=== PATIENT | male | born 1995 | race Caucasian/White ===

== ENCOUNTER 2018-05-23 04:28 | Emergency (ER) | payer OTHER ==
--- NOTE | 2018-05-23 04:39 | PDOC ---
History of Present Illness - General Stated Complaint: COUGHING - History of Present Illness Initial Comments: 05/23/18 04:37 Mr. John is a 23 yo male w/ pmh of autism, MR, and seizure disorder who presents for evaluation of The patient denies chest pain, shortness of breath, headache and dizziness. Denies fever, chills, nausea, vomit, diarrhea and constipation. Denies dysuria, frequency, urgency and hematuria. Allergies: Past History - Past Medical History Allergies/Adverse Reactions: Allergies Allergy/AdvReac Type Severity Reaction Status Date / Time No Known Allergies Allergy Verified 09/05/17 06:19 Home Medications: Ambulatory Orders Benztropine Mesylate [Cogentin -] 0.5 mg PO HS 09/05/17 Chlorpromazine [Thorazine -] 200 mg PO DAILY 09/05/17 Clonidine HCl 0.2 mg PO BID 09/05/17 Divalproex [Depakote -] 500 mg PO DAILY 09/05/17 Quetiapine Fumarate [Seroquel] 100 tab PO BID 09/05/17 Anemia: No Asthma: No Cancer: No Cardiac Disorders: No CVA: No COPD: No DVT: No Dementia: No Diabetes: No Dialysis: No GI Disorders: No Disorders: No HTN: No Hypercholesterolemia: No Kidney Stones: No Liver Disease: No Psychiatric Problems: No Seizures: Yes (last seizure 2 months ago) Thyroid Disease: No Lung CA: No - Surgical History Abdominal Surgery: No Appendectomy: No Cardiac Surgery: No Cholecystectomy: No Gastric Stapling: No GI Surgery: No Lung Surgery: No Neurologic Surgery: No - Immunization History Immunization Up to Date: Yes - Suicide/Smoking/Psychosocial Hx Smoking History: Never smoked Have you smoked in the past 12 months: No Hx Alcohol Use: No Drug/Substance Use Hx: No Substance Use Type: None Review of Systems - Review of Systems Comments:: 05/23/18 04:38 GENERAL/CONSTITUTIONAL: No fever or chills. No weakness. HEAD, EYES, EARS, NOSE AND THROAT: No change in vision. No ear pain or discharge. No sore throat. CARDIOVASCULAR: No chest pain or shortness of breath RESPIRATORY: No cough, wheezing, or hemoptysis. GASTROINTESTINAL: No nausea, vomiting, diarrhea or constipation. GENITOURINARY: No dysuria, frequency, or change in urination. MUSCULOSKELETAL: No joint or muscle swelling or pain. No neck or back pain. SKIN: No rash NEUROLOGIC: No headache, vertigo, loss of consciousness, or change in strength/ sensation. ENDOCRINE: No increased thirst. No abnormal weight change HEMATOLOGIC/LYMPHATIC: No anemia, easy bleeding, or history of blood clots. ALLERGIC/IMMUNOLOGIC: No hives or skin allergy. *Physical Exam - Physical Exam Comments: 05/23/18 04:38 GENERAL: Awake, alert, and fully oriented, in no acute distress HEAD: No signs of trauma, normocephalic, atraumatic EYES: PERRLA, EOMI, sclera anicteric, conjunctiva clear ENT: Auricles normal inspection, hearing grossly normal, nares patent, oropharynx clear without exudates. Moist mucosa NECK: Normal ROM, supple, no lymphadenopathy, JVD, or masses LUNGS: No distress, speaks full sentences, clear to auscultation bilaterally HEART: Regular rate and rhythm, normal S1 and S2, no murmurs, rubs or gallops, peripheral pulses normal and equal bilaterally. ABDOMEN: Soft, nontender, normoactive bowel sounds. No guarding, no rebound. No masses EXTREMITIES: Normal inspection, Normal range of motion, no edema. No clubbing or cyanosis. NEUROLOGICAL: Cranial nerves II through XII grossly intact. Normal speech, normal gait, no focal sensorimotor deficits SKIN: Warm, Dry, normal turgor, no rashes or lesions noted.
[2018-05-23 04:47] VITALS: BMI 25.0
--- NOTE | 2018-05-23 05:24 | PDOC ---
History of Present Illness - General Chief Complaint: Cold Symptoms Stated Complaint: COUGHING Time Seen by Provider: 05/23/18 05:10 History Source: Parent(s) Exam Limitations: No Limitations - History of Present Illness Initial Comments: 05/23/18 05:17 Patient is a 23 year old male with autistic, h/o seasonal allergies, aspiration pneumonia brought by mother for c/o cough x 1 week. Mother states that the cough was intermittent but since last night the cough has been dry, barky type, persistent. Denies fever but notes decreased appetite x 2 days and diarrhea x 1 day. Patient is nonverbal and none and not interactive history obtained from the parents. PMD: Dr. Ellington with [facility] PMHX: as above PSOCHX: lives with parents ALL: NKDA GENERAL/CONSTITUTIONAL: [No fever or chills. No weakness. No weight change.] HEAD, EYES, EARS, NOSE AND THROAT: [No change in vision. No ear pain or discharge. No sore throat.] CARDIOVASCULAR: [No chest pain or shortness of breath.] RESPIRATORY: (+) cough, (-) wheezing, or hemoptysis.] GASTROINTESTINAL: [No nausea, vomiting, diarrhea or constipation. No rectal bleeding.] GENITOURINARY: [No dysuria, frequency, or change in urination.] MUSCULOSKELETAL: [No joint or muscle swelling or pain. No neck or back pain.] SKIN AND BREASTS: [No rash or easy bruising.] NEUROLOGIC: [No headache, vertigo, loss of consciousness, or loss of sensation.] PSYCHIATRIC: [No depression or anxiety.] ENDOCRINE: [No increased thirst. No abnormal weight change.] HEMATOLOGIC/LYMPHATIC: [No anemia, easy bleeding, or history of blood clots.] ALLERGIC/IMMUNOLOGIC: [No hives or skin allergy. No latex allergy.] GENERAL: [The patient is awake, alert, in no acute distress.] HEAD: [Normal with no signs of trauma.] EYES: [Pupils equal, round and reactive to light, extraocular movements intact, sclera anicteric, conjunctiva clear.] ENT: [Ears normal, nares patent, Moist mucous membranes.] NECK: [Normal range of motion, supple without lymphadenopathy, JVD, or masses.] LUNGS: [Breath sounds equal, clear to auscultation bilaterally. No wheezes, and no crackles.] HEART: [Regular rate and rhythm, normal S1 and S2 without murmur, rub.] ABDOMEN: [Soft, nontender, normoactive bowel sounds. No guarding, no rebound. No masses.] EXTREMITIES: [Normal range of motion, no edema. No clubbing or cyanosis. No cords, erythema, or tenderness.] NEUROLOGICAL: [Cranial nerves II through XII grossly intact. Normal speech, normal gait.] PSYCH: [Normal mood, normal affect.] SKIN: [Warm, Dry, normal turgor, no rashes or lesions noted.] Past History - Past Medical History Allergies/Adverse Reactions: Allergies Allergy/AdvReac Type Severity Reaction Status Date / Time No Known Allergies Allergy Verified 05/23/18 04:45 Home Medications: Ambulatory Orders Benztropine Mesylate [Cogentin -] 2 mg PO HS 09/05/17 Chlorpromazine [Thorazine -] 200 mg PO TID 09/05/17 Clonidine HCl 0.2 mg PO QID 09/05/17 Divalproex [Depakote -] 500 mg PO TID 09/05/17 Quetiapine Fumarate [Seroquel] 300 tab PO BID 09/05/17 [place] Carbonate [Eskalith -] 450 mg PO BID 05/23/18 Anemia: No Asthma: No Cancer: No Cardiac Disorders: No CVA: No COPD: No DVT: No Dementia: No Diabetes: No Dialysis: No GI Disorders: No Disorders: No HTN: No Hypercholesterolemia: No Kidney Stones: No Liver Disease: No Psychiatric Problems: No Seizures: Yes (last seizure 2 months ago) Thyroid Disease: No Lung CA: No Other medical history: autism - Surgical History Abdominal Surgery: No Appendectomy: No Cardiac Surgery: No Cholecystectomy: No Gastric Stapling: No GI Surgery: No Lung Surgery: No Neurologic Surgery: No - Immunization History Immunization Up to Date: Yes - Suicide/Smoking/Psychosocial Hx Smoking History: Never smoked Have you smoked in the past 12 months: No Information on smoking cessation initiated: No Hx Alcohol Use: No Drug/Substance Use Hx: No Substance Use Type: None *Physical Exam - Vital Signs Last Vital Signs Temp Pulse Resp BP Pulse Ox 99.9 F H 100 H 18 119/85 95 05/23/18 04:45 05/23/18 04:45 05/23/18 04:45 05/23/18 04:45 05/23/18 04:45 ED Treatment Course - LABORATORY CBC & Chemistry Diagram: 05/23/18 06:25 05/23/18 06:25 - RADIOLOGY Radiology Studies Ordered: Category Date Time Status CHEST PA & LAT [RAD] Stat Radiology 05/23/18 05:16 Ordered Medical Decision Making - Medical Decision Making 05/23/18 05:17 Patient is a 23 year old male with autistic, h/o seasonal allergies, aspiration pneumonia brought by mother for c/o cough x 1 week. Most likely viral. will get xray. 05/23/18 06:06 cxr no acute finding as read by me 05/23/18 07:01 Endorsed to the AM team pending labs. *DC/Admit/Observation/Transfer Diagnosis at time of Disposition: Cough - Referrals - Patient Instructions - Post Discharge Activity
[2018-05-23 07:01] LABS: ANION GAP 8 (8-16); BLOOD UREA NITROGEN 8 mg/dL (7-18); CALCIUM 9.1 mg/dL (8.5-10.1); CHLORIDE 109 mmol/L (98-107); CO2 26 mmol/L (21-32); CREATININE 0.7 mg/dL (0.7-1.3); GLUCOSE,RANDOM 97 mg/dL (74-106); POTASSIUM 4.1 mmol/L (3.5-5.1); SODIUM 143 mmol/L (136-145)
[2018-05-23 07:14] LABS: BASO % 0.2 % (0-2.0); EOS % 0.4 % (0-4.5); HEMATOCRIT 35.9 % (35.4-49); HEMOGLOBIN 12.3 GM/dL (11.7-16.9); LYMPH % 7.3 % (8-40); MCH 29.7 pg (25.7-33.7); MCHC 34.1 g/dl (32.0-35.9); MEAN PLT VOLUME 8.6 fl (7.5-11.1); MONO % 11.9 % (3.8-10.2); NEUT % 80.2 % (42.8-82.8); PLATELET COUNT 284 K/MM3 (134-434); RBC 4.13 M/mm3 (4.00-5.60); WHITE BLOOD COUNT 16.1 K/mm3 (4.0-10.0)
[2018-05-23] MEDS ORDERED: ACETAMINOPHEN 1000 MG/100 ML VIAL (NON FORMULARY) IVPB ONE (08:20)
[2018-05-23] MEDS ORDERED: SODIUM CHLORIDE 500 ML IV STA (08:20)
--- NOTE | 2018-05-23 08:22 | PDOC ---
*Physical Exam - Vital Signs Last Vital Signs Temp Pulse Resp BP Pulse Ox 97.9 F 69 14 100/68 95 05/23/18 06:53 05/23/18 06:53 05/23/18 06:53 05/23/18 06:53 05/23/18 06:53 - Physical Exam Comments: 05/23/18 08:23 pt sleeping at this time General Appearance: Yes: Appropriately Dressed. No: Apparent Distress Neck: positive: Supple Respiratory/Chest: positive: Lungs Clear, Normal Breath Sounds. negative: Respiratory Distress, Accessory Muscle Use, Wheezing Gastrointestinal/Abdominal: positive: Soft Integumentary: positive: Dry, Warm ED Treatment Course - LABORATORY CBC & Chemistry Diagram: 05/23/18 06:25 05/23/18 06:25 - ADDITIONAL ORDERS Additional order review: Laboratory Results 05/23/18 05/23/18 06:25 06:25 Sodium 143 Potassium 4.1 Chloride 109 H Carbon Dioxide 26 Anion Gap 8 BUN 8 Creatinine 0.7 Creat Clearance w eGFR > 60 Random Glucose 97 Lactic Acid 1.9 Calcium 9.1 05/23/18 06:25 RBC 4.13 MCV 87.0 MCHC 34.1 RDW 15.0 MPV 8.6 Neutrophils % 80.2 Lymphocytes % 7.3 L D Monocytes % 11.9 H Eosinophils % 0.4 Basophils % 0.2 Medical Decision Making - Medical Decision Making 05/23/18 08:21 Signed out to me at 7am 23-year-old male, history of autism, nonverbal at baseline, s/p aspiration pneumonia while hospitalized several years ago per mother, here with mostly dry cough with possible short of breath 1 week. No wheezing or fever. Patient had low-grade fever here with heart rate of 100, but with clear lungs as per prior team though limited as pt not able to comply w/ instructions. Chest x- ray with weak inspiration w/ some central congestive changes, but no focal infiltrate. White count of 16. IV fluid and Tylenol and progress. Will discuss disposition with ED attending 05/23/18 09:36 Vitals improved. Patient now awake and well-appearing in no apparent distress. Dose of azithro given in ED. As per discussion w/ Dr Pham, patient okay to be discharged with close follow-up tomorrow. Parents aware and will contact patient's PMD in the a.m. . Reasons to return to ED discussed with parents *DC/Admit/Observation/Transfer Diagnosis at time of Disposition: Cough - Discharge Dispostion Disposition: HOME Condition at time of disposition: Improved - Prescriptions Prescriptions: Azithromycin [Zithromax 250mg Tablets -] 250 mg PO DAILY #4 tab - Referrals - Patient Instructions Printed Discharge Instructions: DI for Acute Bronchitis Additional Instructions: Your child was treated for possible pneumonia. His chest x-ray did not show an obvious infection, but his white count which is a marker of infection was 16. He was given the first dose of azithromycin here with the rest sent to pharmacy. Patient should follow-up with his PMD in the a.m. Please return for any worsening of symptoms - Post Discharge Activity
[2018-05-23] MEDS ORDERED: ACETAMINOPHEN INJECTION 100 ML IVPB ONE (08:40)
[2018-05-23] MEDS ORDERED: AZITHROMYCIN 250 MG TABLET PO ONE (09:34)
[2018-05-23] MEDS ORDERED: AZITHROMYCIN 250 MG TABLET ONE (09:39)
[2018-05-23 10:32] VITALS: BP 118/76; PULSE 91; TEMP 97.4
== END 2018-05-23 09:39 | disposition home or self-care (01) ==
LOC: JER 04:28
PROC: 3E033NZ Introduction of Analgesics, Hypnotics, Sedatives into Peripheral Vein, Percutaneous Approach (ICD-10-PCS; principal; 2018-05-23)
DX: R05 Cough (principal); R50.9 Fever, unspecified; F79 Unspecified intellectual disabilities; F84.0 Autistic disorder; G40.802 Other epilepsy, not intractable, without status epilepticus
CPT/HCPCS: 36415; 71045-TC-FY; 80048; 83605; 85025; 96374; 99282-25; J0131

== ENCOUNTER 2019-07-15 21:36 | Emergency (ER) | payer OTHER ==
[2019-07-15] MEDS ORDERED: SODIUM CHLORIDE 1,000 ML IV STA (21:49)
--- NOTE | 2019-07-15 21:49 | PDOC ---
Rapid Medical Evaluation Medical Evaluation: Allergies Allergy/AdvReac Type Severity Reaction Status Date / Time No Known Allergies Allergy Verified 05/23/18 04:45 I have performed a brief in-person evaluation of this patient. The patient presents with a chief complaint of: c/o SOB from today per mother; mother also concerned as patient feeling weak x 1 week; denies vomiting, diarrhea; hx of autism; mother mentions he is not eating much as he usually does Pertinent physical exam findings: In NAD, nonverbal, no obvious adventitious sounds noted on lung exam I have ordered the following: Labs, CXR The patient will proceed to the ED for further evaluation. 07/15/19 21:44
[2019-07-15 21:51] VITALS: BP 118/81; PULSE 97; TEMP 97.8; BMI 22.6
--- NOTE | 2019-07-15 23:30 | PDOC ---
History of Present Illness - General Chief Complaint: Weakness Stated Complaint: Shortness of Breath Time Seen by Provider: 07/15/19 21:44 - History of Present Illness Initial Comments: 07/15/19 23:25 Hx obtained from mother. 24 y/o M hx of autism and Intellectual disability, presents to the ED with 1 week of cough and weakness. He is non-verbal at baseline. Pt has had a non- productive cough for the last week. Cough is non-productive, no wheezing has been noted. Pt has had decreased po intake. He is able to eat chopped foods at baseline when fed. There has been no vomiting, fevers, chills, bloody stools, foul smelling urine, hematuria, or unusual rashes. Pt was started on new ADHD medication just prior to onset of symtoms (Strattera) 07/16/19 00:45 Past History - Past Medical History Allergies/Adverse Reactions: Allergies Allergy/AdvReac Type Severity Reaction Status Date / Time No Known Allergies Allergy Verified 07/15/19 21:50 Home Medications: Ambulatory Orders Benztropine Mesylate [Cogentin -] 2 mg PO HS 09/05/17 Chlorpromazine [Thorazine -] 100 mg PO TID 09/05/17 Clonidine HCl 0.2 mg PO TID 09/05/17 Divalproex [Depakote -] 500 mg PO TID 09/05/17 Quetiapine Fumarate [Seroquel] 300 tab PO DAILY 09/05/17 [place] Carbonate [Eskalith -] 600 mg PO HS 05/23/18 [place] Carbonate [Eskalith -] 300 mg PO HS 07/16/19 Quetiapine Fumarate [Seroquel -] 600 mg PO DAILY 07/16/19 Anemia: No Asthma: No Cancer: No Cardiac Disorders: No CVA: No COPD: No DVT: No Dementia: No Diabetes: No Dialysis: No GI Disorders: No Disorders: No HTN: No Hypercholesterolemia: No Kidney Stones: No Liver Disease: No Psychiatric Problems: No Seizures: Yes (last seizure 2 months ago) Thyroid Disease: No Lung CA: No - Surgical History Abdominal Surgery: No Appendectomy: No Cardiac Surgery: No Cholecystectomy: No Gastric Stapling: No GI Surgery: No Lung Surgery: No Neurologic Surgery: No - Immunization History Immunization Up to Date: Yes - Suicide/Smoking/Psychosocial Hx Smoking History: Never smoked Have you smoked in the past 12 months: No Information on smoking cessation initiated: No Hx Alcohol Use: No Drug/Substance Use Hx: No Substance Use Type: None Review of Systems - Review of Systems Comments:: 07/15/19 23:29 ltd, pt is non-verbal obtained from family Constitutional: No: Chills, Fever ABD/GI: No: Abdominal Distended, Diarrhea : No: Discharge, Hematuria, Testicular Swelling Musculoskeletal: No: Joint Swelling Integumentary: No: Bruising, Change in Color *Physical Exam - Vital Signs Last Vital Signs Temp Pulse Resp BP Pulse Ox 97.8 F 97 H 15 118/81 100 07/15/19 21:48 07/15/19 21:48 07/15/19 21:48 07/15/19 21:48 07/15/19 21:48 - Physical Exam General Appearance: Yes: Nourished, Appropriately Dressed. No: Apparent Distress HEENT: negative: Scleral Icterus (R), Scleral Icterus (L) Neck: positive: Trachea midline, Supple Respiratory/Chest: positive: Lungs Clear, Decreased Breath Sounds (pt unable to inspire and on command). negative: Accessory Muscle Use, Paradoxal Breathing Cardiovascular: positive: Regular Rhythm, Regular Rate, S1, S2. negative: Edema , JVD Vascular Pulses: Dorsalis-Pedis (R): 1+, Doralis-Pedis (L): 1+ Gastrointestinal/Abdominal: positive: Normal Bowel Sounds, Flat, Soft. negative : Pulsatile Mass, Protuberent, Hernia Male Genitalia: positive: normal genitalia. negative: discharge Musculoskeletal: positive: Normal Inspection. negative: CVA Tenderness Extremity: positive: Normal Capillary Refill, Normal Inspection, Normal Range of Motion. negative: Pedal Edema Integumentary: positive: Normal Color, Dry, Warm Neurologic: positive: Alert ED Treatment Course - LABORATORY CBC & Chemistry Diagram: 07/15/19 23:35 07/15/19 23:35 Medical Decision Making - Medical Decision Making 07/15/19 23:31 24 y/o M hx of autism and Intellectual disability, presents to the ED with 1 week of cough and weakness cbc, cmp, chest x-ray,mag 07/15/19 23:32 cbc, cmp, cxr unremarkable Pt began new adhd medication just prior to onset of fatigue. since no other reason for presentation asked to stop and observe and follow up with providers. 07/16/19 01:19 *DC/Admit/Observation/Transfer Diagnosis at time of Disposition: Weakness, Cough - Discharge Dispostion Disposition: HOME Condition at time of disposition: Stable - Referrals Referrals: Magda Ellington MD [Primary Care Provider] - - Patient Instructions Printed Discharge Instructions: Cough, DI for Fatigue Additional Instructions: You were seen in the ED for cough and fatigue (weakness) you have been instructed to stop newly prescribed adhd medication. follow up with your primary care provider and psychiatrist in the next few days RETURN TO ER: if you experience fevers, chills, increasing cough, worsening weakness/ worsening of other symptoms you presented with today. - Post Discharge Activity
--- NOTE | 2019-07-15 23:40 | PDOC ---
Documentation entered by Xiomara Yadav SCRIBE, acting as scribe for Myron Alford MD. Myron Alford MD: This documentation has been prepared by the Vicenta brown Xhesika, SCRIBE, under my direction and personally reviewed by me in its entirety. I confirm that the documentation accurately reflects all work, treatment, procedures, and medical decision making performed by me. Attending Attestation - Resident Resident Name: Kyle Sosa - ED Attending Attestation I have performed the following: I have examined & evaluated the patient, The case was reviewed & discussed with the resident, I agree w/resident's findings & plan, Exceptions are as noted - HPI HPI: 07/15/19 23:13 The patient is a 24 year old male with a PMH of autism, MR, seizures, and ADD ( recently started on new medication) who presents to the ED with progressively worsening weakness and SOB for the past week. Mother notes patient is endorsing decreased appetite, secondary to his symptoms. Mother denies any fever, chills, cough, nausea, vomiting, diarrhea and constipation. Allergies: NKDA Social Hx: Denies current smoking, drinking, or other substance usage. - Physicial Exam PE: 07/15/19 23:14 Vitals: Triage Vital signs reviewed General: Quiet Chest Wall: Nontender Cardiac: Regular rate and rhythm, no murmurs, no rubs, no gallops, Lungs: Clear to auscultation bilateral, but, not engaging in deep expiration Abdomen: Soft, nondistended, normal bowel sounds, nontender to palpation Extremities:Moving all extremities Skin: Warm and dry, no rashes or lesions, no petechiae - Medical Decision Making 07/16/19 01:41 All of patient's symptoms appeared to have started after starting a new ADD medication approximately 5 days ago. Here in the emergency department an x-ray was performed which demonstrated no acute pathology his blood work is unremarkable we discussed with the family observing the patient overnight however they feel comfortable with returning the patient home. They will stop the ED medication today and tomorrow there follow-up with the patient's doctor on Thursday they will return to the emergency department for any severe worsening symptoms or for any concerns.
[2019-07-15 23:44] LABS: BASO % 0.8 % (0-2.0); EOS % 1.9 % (0-4.5); HEMATOCRIT 42.4 % (35.4-49); HEMOGLOBIN 13.8 GM/dL (11.7-16.9); LYMPH % 24.6 % (8-40); MCH 30.1 pg (25.7-33.7); MCHC 32.6 g/dl (32.0-35.9); MEAN CELL VOLUME 92.2 fl (80-96); MEAN PLT VOLUME 9.8 fl (7.5-11.1); MONO % 9.6 % (3.8-10.2); NEUT % 63.1 % (42.8-82.8); PLATELET COUNT 224 K/MM3 (134-434); RDW 14.4 % (11.9-15.9); WHITE BLOOD COUNT 7.4 K/mm3 (4.0-10.0)
[2019-07-16 00:07] LABS: ALBUMIN 3.6 g/dl (3.4-5.0); BILIRUBIN,TOTAL 0.4 mg/dL (0.2-1); BLOOD UREA NITROGEN 11.8 mg/dL (7-18); CALCIUM 9.4 mg/dL (8.5-10.1); CREATININE 0.9 mg/dL (0.55-1.3); MAGNESIUM 2.2 mg/dL (1.8-2.4); POTASSIUM 4.5 mmol/L (3.5-5.1); TOT PROT 7.5 g/dl (6.4-8.2)
== END 2019-07-16 01:30 | disposition home or self-care (01) ==
LOC: JER 21:36
PROC: 3E0337Z Introduction of Electrolytic and Water Balance Substance into Peripheral Vein, Percutaneous Approach (ICD-10-PCS; principal; 2019-07-15)
DX: R05 Cough (principal); F98.8 Other specified behavioral and emotional disorders with onset usually occurring in childhood and adolescence; F84.0 Autistic disorder; F79 Unspecified intellectual disabilities
CPT/HCPCS: 71045-TC-FY; 80053; 83735; 85025; 99282-25; J7030

== ENCOUNTER 2023-04-25 14:02 | Inpatient (IN) | payer OTHER ==
[2023-04-25] MEDS ORDERED: FUROSEMIDE 40 MG/4 ML INJECTABLE VIAL IVPUSH ONE (17:07)
[2023-04-25 17:17] LABS: HEMATOCRIT 39.5 % (35.4-49); HEMOGLOBIN 13.2 GM/dL (11.7-16.9); MCH 30.4 pg (25.7-33.7); MCHC 33.5 g/dl (32.0-35.9); MEAN CELL VOLUME 90.7 fl (80-96); MEAN PLT VOLUME 8.7 fl (7.5-11.1); PLATELET COUNT 222 10^3/uL (134-434); RBC 4.36 M/mm3 (4.00-5.60); RDW 13.7 % (11.9-15.9); WHITE BLOOD COUNT 22.1 K/mm3 (4.0-10.0)
[2023-04-25 17:19] LABS: VENOUS BASE EXCESS -1.2 mmol/L (-2-2); VENOUS O2 SATURATION 47.6 % (70-80); VENOUS PCO2 45.3 mmHg (38-52); VENOUS PH 7.353 (7.310-7.410)
[2023-04-25 17:33] LABS: INR 1.44 (0.83-1.09); PROTHROMBIN TIME (PATIENT) 16.7 SEC (9.7-13.0)
[2023-04-25 17:38] LABS: CHLORIDE 103 mmol/L (98-107); POTASSIUM 4.1 mmol/L (3.5-5.1); SODIUM 137 mmol/L (136-145)
[2023-04-25 17:40] LABS: ALBUMIN 3.4 g/dl (3.4-5.0); ANION GAP 6 MMOL/L (8-16); CO2 28 mmol/L (21-32)
[2023-04-25 17:41] LABS: BLOOD UREA NITROGEN 18.5 mg/dL (7-18); GLUCOSE,RANDOM 89 mg/dL (74-106)
[2023-04-25 17:44] LABS: SGOT/AST 18 U/L (15-37); SGPT/ALT 20 U/L (13-61)
[2023-04-25 17:45] LABS: BILIRUBIN,TOTAL 0.5 mg/dL (0.2-1); TOT PROT 7.7 g/dl (6.4-8.2)
[2023-04-25 17:46] LABS: ALK PHOS 84 U/L (45-117)
[2023-04-25] MEDS ORDERED: AZITHROMYCIN IVPB 500 MG in DEXTROSE 5%-WATER - 250 ML IVPB ONE (17:51)
[2023-04-25] MEDS ORDERED: CEFTRIAXONE 1,000 MG in DEXTROSE 5%-WATER - 50 ML IVPB ONE (17:51)
[2023-04-25] MEDS ORDERED: CEFTRIAXONE 1 GM/50 ML BAG ONE (17:54)
[2023-04-25 18:00] LABS: EPI CELLS 10 /uL (0-25.1); HYALINE CASTS 0 /uL (0-3.1); PH,URINE 6.5 (5.0-8.0); URINE APPEARANCE CLEAR; URINE BACTERIA 16 /uL (0-1359); URINE BILIRUBIN NEGATIVE (NEGATIVE); URINE COLOR YELLOW; URINE GLUCOSE (UA) NEGATIVE (NEGATIVE); URINE KETONE TRACE (NEGATIVE); URINE LEUK ESTERASE NEGATIVE (NEGATIVE); URINE NITRITE NEGATIVE (NEGATIVE); URINE PROTEIN NEGATIVE (NEGATIVE); URINE RBC 137 /uL (0-23.9); URINE WBC 11 /uL (0-25.8)
[2023-04-25] MEDS ORDERED: AZITHROMYCIN IVPB 500 MG/250 ML BAG IVPB ONE (18:19)
[2023-04-25] MEDS ORDERED: SODIUM CHLORIDE 0.9% 500 ML INFUS.BAG IV ONE (18:20)
[2023-04-25 18:46] LABS: ANISOCYTOSIS 0; MACROCYTOSIS 0
[2023-04-26] MEDS: SODIUM CHLORIDE 1,000 ML IV SCH ×2 (02:46→21:16)
[2023-04-26] MEDS: LITHIUM CARBONATE 150 MG CAPSULE PO SCH ×2 (02:52→16:56)
[2023-04-26] MEDS: VALPROATE SODIUM 250 MG/5 ML UNIT DOSE CUP PO SCH ×3 (02:53→21:15)
[2023-04-26 06:50] LABS: HEMATOCRIT 39.4 % (35.4-49); HEMOGLOBIN 13.1 GM/dL (11.7-16.9); MCH 30.9 pg (25.7-33.7); MCHC 33.3 g/dl (32.0-35.9); MEAN CELL VOLUME 92.9 fl (80-96); MEAN PLT VOLUME 9.6 fl (7.5-11.1); PLATELET COUNT 195 10^3/uL (134-434); RBC 4.24 M/mm3 (4.00-5.60); RDW 13.8 % (11.9-15.9); WHITE BLOOD COUNT 10.5 K/mm3 (4.0-10.0)
[2023-04-26 07:01] LABS: POTASSIUM 4.1 mmol/L (3.5-5.1)
[2023-04-26 07:03] LABS: CALCIUM 9.3 mg/dL (8.5-10.1)
[2023-04-26 07:04] LABS: ALBUMIN 2.9 g/dl (3.4-5.0); BLOOD UREA NITROGEN 11.5 mg/dL (7-18)
[2023-04-26 07:07] LABS: CREATININE 0.8 mg/dL (0.55-1.3)
[2023-04-26 07:09] LABS: BILIRUBIN,TOTAL 0.6 mg/dL (0.2-1); TOT PROT 6.6 g/dl (6.4-8.2)
[2023-04-26] MEDS: cloNIDine HCL 0.1 MG TABLET PO SCH ×3 (07:33→21:15)
[2023-04-26] MEDS: AZITHROMYCIN IVPB 250 MG in DEXTROSE 5%-WATER - 250 ML IVPB SCH (09:24)
[2023-04-26 10:31] VITALS: BMI 22.4
[2023-04-26] MEDS: CEFTRIAXONE 1 GM in DEXTROSE 5%-WATER - 50 ML IVPB SCH (11:56)
[2023-04-26] MEDS: CHOLECALCIFEROL (VIT D3) 1,000 UNIT (25 MCG) TABLET PO SCH (11:56)
[2023-04-26] MEDS: ENOXAPARIN NA (PORCINE) 40 MG/0.4 ML DISP.SYRIN SQ SCH (12:11)
[2023-04-26] MEDS: BENZTROPINE MESYLATE 0.5 MG TABLET (FP) PO SCH ×2 (13:31→21:16)
[2023-04-26] MEDS: chlorproMAZINE HCL 100 MG TABLET PO SCH ×2 (13:31→21:18)
[2023-04-26 15:43] LABS: URINE APPEARANCE CLEAR; URINE BILIRUBIN NEGATIVE (NEGATIVE); URINE COLOR YELLOW; URINE GLUCOSE (UA) NEGATIVE (NEGATIVE); URINE KETONE NEGATIVE (NEGATIVE); URINE LEUK ESTERASE NEGATIVE (NEGATIVE); URINE NITRITE NEGATIVE (NEGATIVE); URINE PROTEIN NEGATIVE (NEGATIVE)
[2023-04-26] MEDS: LITHIUM CARBONATE 450 MG PO SCH (21:14)
[2023-04-26] MEDS: QUEtiapine FUMARATE 200 MG TABLET PO SCH (21:15)
[2023-04-26] MEDS ORDERED: LITHIUM CARBONATE 450 MG TABLET.ER PO SCH (22:00)
[2023-04-27] MEDS: cloNIDine HCL 0.1 MG TABLET PO SCH ×3 (06:51→21:38)
[2023-04-27] MEDS: CEFTRIAXONE 1 GM in DEXTROSE 5%-WATER - 50 ML IVPB SCH (11:11)
[2023-04-27] MEDS: AZITHROMYCIN IVPB 250 MG in DEXTROSE 5%-WATER - 250 ML IVPB SCH (11:12)
[2023-04-27] MEDS: ENOXAPARIN NA (PORCINE) 40 MG/0.4 ML DISP.SYRIN SQ SCH (11:12)
[2023-04-27] MEDS: VALPROATE SODIUM 250 MG/5 ML UNIT DOSE CUP PO SCH ×2 (11:12→21:38)
[2023-04-27] MEDS: CHOLECALCIFEROL (VIT D3) 1,000 UNIT (25 MCG) TABLET PO SCH (11:13)
[2023-04-27] MEDS: chlorproMAZINE HCL 100 MG TABLET PO SCH ×2 (11:13→21:39)
[2023-04-27] MEDS: BENZTROPINE MESYLATE 0.5 MG TABLET (FP) PO SCH ×2 (11:13→21:39)
[2023-04-27] MEDS: LITHIUM CARBONATE 450 MG PO SCH ×2 (11:15→21:39)
[2023-04-27] MEDS: QUEtiapine FUMARATE 200 MG TABLET PO SCH (21:38)
[2023-04-28] MEDS: cloNIDine HCL 0.1 MG TABLET PO SCH ×3 (06:01→21:15)
[2023-04-28 07:40] LABS: BASO % 0.6 % (0-2.0); EOS % 1.6 % (0-4.5); HEMATOCRIT 39.3 % (35.4-49); HEMOGLOBIN 12.8 GM/dL (11.7-16.9); LYMPH % 29.7 % (8-40); MCH 30.5 pg (25.7-33.7); MCHC 32.6 g/dl (32.0-35.9); MEAN CELL VOLUME 93.4 fl (80-96); MEAN PLT VOLUME 9.7 fl (7.5-11.1); MONO % 9.5 % (3.8-10.2); NEUT % 58.6 % (42.8-82.8); PLATELET COUNT 198 10^3/uL (134-434); RBC 4.21 M/mm3 (4.00-5.60); RDW 13.7 % (11.9-15.9); WHITE BLOOD COUNT 6.8 K/mm3 (4.0-10.0)
[2023-04-28 08:16] LABS: POTASSIUM 4.3 mmol/L (3.5-5.1)
[2023-04-28 08:23] LABS: BLOOD UREA NITROGEN 5.7 mg/dL (7-18); CALCIUM 9.7 mg/dL (8.5-10.1); MAGNESIUM 1.7 mg/dL (1.8-2.4)
[2023-04-28 08:26] LABS: CREATININE 0.6 mg/dL (0.55-1.3); TOT PROT 6.8 g/dl (6.4-8.2)
[2023-04-28 08:27] LABS: BILIRUBIN,TOTAL 0.6 mg/dL (0.2-1)
[2023-04-28] MEDS: AZITHROMYCIN IVPB 250 MG in DEXTROSE 5%-WATER - 250 ML IVPB SCH (09:57)
[2023-04-28] MEDS: CEFTRIAXONE 1 GM in DEXTROSE 5%-WATER - 50 ML IVPB SCH (09:57)
[2023-04-28] MEDS: ENOXAPARIN NA (PORCINE) 40 MG/0.4 ML DISP.SYRIN SQ SCH (09:57)
[2023-04-28] MEDS: BENZTROPINE MESYLATE 0.5 MG TABLET (FP) PO SCH ×2 (10:47→21:15)
[2023-04-28] MEDS: VALPROATE SODIUM 250 MG/5 ML UNIT DOSE CUP PO SCH (10:48)
[2023-04-28] MEDS: chlorproMAZINE HCL 100 MG TABLET PO SCH ×2 (10:48→21:16)
[2023-04-28] MEDS: LITHIUM CARBONATE 450 MG PO SCH ×2 (10:48→21:16)
[2023-04-28] MEDS: CHOLECALCIFEROL (VIT D3) 1,000 UNIT (25 MCG) TABLET PO SCH (10:48)
[2023-04-28] MEDS ORDERED: VALPROATE SODIUM 500 MG/5 ML VIAL IVPB SCH (13:15)
[2023-04-28] MEDS: AMINO ACIDS 4.25%/D5W 1,000 ML IV SCH (13:33)
[2023-04-28] MEDS: VALPROATE SODIUM INJECTION 250 MG in SODIUM CHLORIDE 100 ML IVPB SCH ×2 (16:57→21:14)
[2023-04-28] MEDS: QUEtiapine FUMARATE 200 MG TABLET PO SCH (21:16)
[2023-04-29] MEDS: VALPROATE SODIUM INJECTION 250 MG in SODIUM CHLORIDE 100 ML IVPB SCH ×4 (02:32→22:24)
[2023-04-29] MEDS: cloNIDine HCL 0.1 MG TABLET PO SCH ×3 (05:25→21:48)
[2023-04-29 09:10] LABS: HEMATOCRIT 39.8 % (35.4-49); HEMOGLOBIN 13.1 GM/dL (11.7-16.9); MCH 30.8 pg (25.7-33.7); MCHC 32.8 g/dl (32.0-35.9); MEAN CELL VOLUME 93.9 fl (80-96); MEAN PLT VOLUME 9.7 fl (7.5-11.1); MONO % 8.1 % (3.8-10.2); NEUT % 61.9 % (42.8-82.8); PLATELET COUNT 218 10^3/uL (134-434); RBC 4.24 M/mm3 (4.00-5.60); RDW 13.5 % (11.9-15.9); WHITE BLOOD COUNT 6.4 K/mm3 (4.0-10.0)
[2023-04-29 09:19] LABS: POTASSIUM 4.3 mmol/L (3.5-5.1)
[2023-04-29 09:21] LABS: BLOOD UREA NITROGEN 11.8 mg/dL (7-18); CALCIUM 9.5 mg/dL (8.5-10.1)
[2023-04-29 09:22] LABS: ALBUMIN 3.2 g/dl (3.4-5.0); MAGNESIUM 1.6 mg/dL (1.8-2.4)
[2023-04-29 09:25] LABS: CREATININE 0.6 mg/dL (0.55-1.3)
[2023-04-29 09:26] LABS: BILIRUBIN,TOTAL 0.3 mg/dL (0.2-1); TOT PROT 7.2 g/dl (6.4-8.2)
[2023-04-29 11:07] LABS: INR 1.32 (0.83-1.09); PROTHROMBIN TIME (PATIENT) 15.3 SEC (9.7-13.0)
[2023-04-29] MEDS: BENZTROPINE MESYLATE 0.5 MG TABLET (FP) PO SCH ×2 (13:16→21:48)
[2023-04-29] MEDS: LITHIUM CARBONATE 450 MG PO SCH ×2 (13:16→21:48)
[2023-04-29] MEDS: CHOLECALCIFEROL (VIT D3) 1,000 UNIT (25 MCG) TABLET PO SCH (13:16)
[2023-04-29] MEDS: chlorproMAZINE HCL 100 MG TABLET PO SCH ×2 (13:16→21:48)
[2023-04-29] MEDS: CEFTRIAXONE 1 GM in DEXTROSE 5%-WATER - 50 ML IVPB SCH (13:17)
[2023-04-29] MEDS: ENOXAPARIN NA (PORCINE) 40 MG/0.4 ML DISP.SYRIN SQ SCH (13:24)
[2023-04-29] MEDS: AMINO ACIDS 4.25%/D5W 1,000 ML IV SCH (13:32)
[2023-04-29] MEDS: AZITHROMYCIN IVPB 250 MG in DEXTROSE 5%-WATER - 250 ML IVPB SCH (13:32)
[2023-04-29] MEDS: QUEtiapine FUMARATE 200 MG TABLET PO SCH (21:48)
[2023-04-30] MEDS: VALPROATE SODIUM INJECTION 250 MG in SODIUM CHLORIDE 100 ML IVPB SCH ×4 (02:52→21:30)
[2023-04-30] MEDS: cloNIDine HCL 0.1 MG TABLET PO SCH ×4 (05:26→21:31)
[2023-04-30 10:30] LABS: BASO % 0.7 % (0-2.0); EOS % 1.7 % (0-4.5); HEMATOCRIT 41.1 % (35.4-49); HEMOGLOBIN 13.4 GM/dL (11.7-16.9); LYMPH % 26.6 % (8-40); MCH 30.7 pg (25.7-33.7); MCHC 32.7 g/dl (32.0-35.9); MEAN CELL VOLUME 93.9 fl (80-96); MEAN PLT VOLUME 9.5 fl (7.5-11.1); MONO % 7.7 % (3.8-10.2); NEUT % 63.3 % (42.8-82.8); PLATELET COUNT 259 10^3/uL (134-434); RBC 4.38 M/mm3 (4.00-5.60); RDW 14.1 % (11.9-15.9); WHITE BLOOD COUNT 6.5 K/mm3 (4.0-10.0)
[2023-04-30 11:05] LABS: POTASSIUM 4.2 mmol/L (3.5-5.1)
[2023-04-30 11:07] LABS: CALCIUM 9.5 mg/dL (8.5-10.1)
[2023-04-30 11:08] LABS: ALBUMIN 3.2 g/dl (3.4-5.0); BLOOD UREA NITROGEN 13.1 mg/dL (7-18); MAGNESIUM 1.6 mg/dL (1.8-2.4)
[2023-04-30 11:11] LABS: CREATININE 0.6 mg/dL (0.55-1.3)
[2023-04-30 11:12] LABS: TOT PROT 7.2 g/dl (6.4-8.2)
[2023-04-30 11:13] LABS: BILIRUBIN,TOTAL 0.3 mg/dL (0.2-1)
[2023-04-30] MEDS: LITHIUM CARBONATE 450 MG PO SCH ×2 (12:03→21:31)
[2023-04-30] MEDS: POLYETHYLENE GLYCOL (HEALTHYLAX) 3350 17 GM PACKET PO SCH ×2 (12:03→21:18)
[2023-04-30] MEDS: BENZTROPINE MESYLATE 0.5 MG TABLET (FP) PO SCH ×2 (12:03→21:31)
[2023-04-30] MEDS: chlorproMAZINE HCL 100 MG TABLET PO SCH ×2 (12:04→21:32)
[2023-04-30] MEDS: CHOLECALCIFEROL (VIT D3) 1,000 UNIT (25 MCG) TABLET PO SCH (12:04)
[2023-04-30] MEDS: AMINO ACIDS 4.25%/D5W 1,000 ML IV SCH (12:04)
[2023-04-30] MEDS: CEFTRIAXONE 1 GM in DEXTROSE 5%-WATER - 50 ML IVPB SCH (12:47)
[2023-04-30] MEDS: ENOXAPARIN NA (PORCINE) 40 MG/0.4 ML DISP.SYRIN SQ SCH (12:52)
[2023-04-30] MEDS: QUEtiapine FUMARATE 200 MG TABLET PO SCH (21:31)
[2023-05-01] MEDS: VALPROATE SODIUM INJECTION 250 MG in SODIUM CHLORIDE 100 ML IVPB SCH ×3 (02:43→15:36)
[2023-05-01] MEDS: AMINO ACIDS 4.25%/D5W 1,000 ML IV SCH (03:55)
[2023-05-01] MEDS: cloNIDine HCL 0.1 MG TABLET PO SCH ×3 (05:27→22:50)
[2023-05-01] MEDS ORDERED: MIDAZOLAM HCL 2 MG/2 ML SINGLE DOSE VIAL ONE (10:04)
[2023-05-01] MEDS ORDERED: POLYETHYLENE GLYCOL 3350 255 GM BTL PO ONE (11:15)
[2023-05-01] MEDS: CHOLECALCIFEROL (VIT D3) 1,000 UNIT (25 MCG) TABLET PO SCH (11:54)
[2023-05-01] MEDS: LITHIUM CARBONATE 450 MG PO SCH ×2 (11:55→22:51)
[2023-05-01] MEDS: chlorproMAZINE HCL 100 MG TABLET PO SCH ×2 (11:55→22:52)
[2023-05-01] MEDS: POLYETHYLENE GLYCOL (HEALTHYLAX) 3350 17 GM PACKET PO SCH ×2 (11:56→22:51)
[2023-05-01] MEDS: BENZTROPINE MESYLATE 0.5 MG TABLET (FP) PO SCH ×2 (11:57→22:51)
[2023-05-01] MEDS: CEFTRIAXONE 1 GM in DEXTROSE 5%-WATER - 50 ML IVPB SCH (11:58)
[2023-05-01 13:12] LABS: BASO % 0.5 % (0-2.0); EOS % 2.6 % (0-4.5); HEMATOCRIT 43.8 % (35.4-49); HEMOGLOBIN 14.4 GM/dL (11.7-16.9); LYMPH % 28.2 % (8-40); MCH 30.8 pg (25.7-33.7); MCHC 32.9 g/dl (32.0-35.9); MEAN CELL VOLUME 93.7 fl (80-96); MEAN PLT VOLUME 8.7 fl (7.5-11.1); MONO % 8.4 % (3.8-10.2); NEUT % 60.3 % (42.8-82.8); PLATELET COUNT 265 10^3/uL (134-434); RBC 4.67 M/mm3 (4.00-5.60); RDW 14.4 % (11.9-15.9); WHITE BLOOD COUNT 6.7 K/mm3 (4.0-10.0)
[2023-05-01 13:43] LABS: POTASSIUM 4.2 mmol/L (3.5-5.1)
[2023-05-01 13:46] LABS: ALBUMIN 3.4 g/dl (3.4-5.0); BLOOD UREA NITROGEN 16.2 mg/dL (7-18); CALCIUM 9.7 mg/dL (8.5-10.1); MAGNESIUM 1.8 mg/dL (1.8-2.4)
[2023-05-01 13:49] LABS: CREATININE 0.6 mg/dL (0.55-1.3)
[2023-05-01 13:51] LABS: BILIRUBIN,TOTAL 0.6 mg/dL (0.2-1); TOT PROT 7.6 g/dl (6.4-8.2)
[2023-05-01 13:55] LABS: PROTHROMBIN TIME (PATIENT) 75.1 SEC (9.7-13.0)
[2023-05-01 13:58] LABS: INR 6.6 (0.83-1.09)
[2023-05-01 20:23] LABS: INR 1.67 (0.83-1.09); PROTHROMBIN TIME (PATIENT) 19.3 SEC (9.7-13.0)
[2023-05-01] MEDS: QUEtiapine FUMARATE 200 MG TABLET PO SCH (22:51)
[2023-05-01] MEDS: VALPROATE SODIUM 250 MG/5 ML UNIT DOSE CUP PO SCH (22:51)
[2023-05-02] MEDS: cloNIDine HCL 0.1 MG TABLET PO SCH ×3 (06:19→22:36)
[2023-05-02 07:55] LABS: BASO % 0.6 % (0-2.0); EOS % 4.1 % (0-4.5); HEMATOCRIT 41.7 % (35.4-49); HEMOGLOBIN 13.9 GM/dL (11.7-16.9); MCH 30.8 pg (25.7-33.7); MCHC 33.3 g/dl (32.0-35.9); MEAN CELL VOLUME 92.3 fl (80-96); MEAN PLT VOLUME 8.4 fl (7.5-11.1); MONO % 7.5 % (3.8-10.2); NEUT % 63.8 % (42.8-82.8); PLATELET COUNT 266 10^3/uL (134-434); RBC 4.51 M/mm3 (4.00-5.60); WHITE BLOOD COUNT 6.1 K/mm3 (4.0-10.0)
[2023-05-02 08:09] LABS: POTASSIUM 4.1 mmol/L (3.5-5.1)
[2023-05-02 08:17] LABS: ALBUMIN 3.3 g/dl (3.4-5.0); BLOOD UREA NITROGEN 18.5 mg/dL (7-18)
[2023-05-02 08:18] LABS: TOT PROT 7.2 g/dl (6.4-8.2)
[2023-05-02 08:19] LABS: BILIRUBIN,TOTAL 0.4 mg/dL (0.2-1); CALCIUM 9.5 mg/dL (8.5-10.1)
[2023-05-02 08:20] LABS: MAGNESIUM 1.7 mg/dL (1.8-2.4)
[2023-05-02 08:21] LABS: CREATININE 0.5 mg/dL (0.55-1.3)
[2023-05-02] MEDS ORDERED: VALPROATE SODIUM 500 MG/5 ML VIAL IVPB SCH (10:45)
[2023-05-02] MEDS: chlorproMAZINE HCL 100 MG TABLET PO SCH ×2 (11:02→22:36)
[2023-05-02] MEDS: BENZTROPINE MESYLATE 0.5 MG TABLET (FP) PO SCH ×2 (11:02→22:36)
[2023-05-02] MEDS: LITHIUM CARBONATE 450 MG PO SCH ×2 (11:03→22:33)
[2023-05-02] MEDS: ENOXAPARIN NA (PORCINE) 40 MG/0.4 ML DISP.SYRIN SQ SCH (11:04)
[2023-05-02] MEDS: POLYETHYLENE GLYCOL (HEALTHYLAX) 3350 17 GM PACKET PO SCH ×2 (11:05→22:33)
[2023-05-02] MEDS: CHOLECALCIFEROL (VIT D3) 1,000 UNIT (25 MCG) TABLET PO SCH (11:05)
[2023-05-02] MEDS: VALPROATE SODIUM INJECTION 250 MG in SODIUM CHLORIDE 100 ML IVPB SCH ×3 (13:05→22:35)
[2023-05-02] MEDS: VALPROATE SODIUM 250 MG/5 ML UNIT DOSE CUP PO SCH (13:06)
[2023-05-02] MEDS ORDERED: AZITHROMYCIN IVPB 500 MG/250 ML BAG IVPB ONE (14:30)
[2023-05-02] MEDS ORDERED: CEFTRIAXONE 1 GM in DEXTROSE 5%-WATER - 50 ML IVPB ONE ×2 (14:30→17:30)
[2023-05-02 14:44] LABS: ARTERIAL BLD GAS O2 SATURATION 97.1 % (95-98); ARTERIAL BLOOD GAS BASE EXCESS 0.6 mmol/L (-2-2); ARTERIAL BLOOD GAS PO2 90.8 mmHg (80-100); ARTERIAL BLOOD GAS pH 7.427 (7.350-7.450)
[2023-05-02 14:45] LABS: ALLENS TEST POSITIVE
[2023-05-02] MEDS: AMINO ACIDS 4.25%/D5W 1,000 ML IV SCH (17:42)
[2023-05-02] MEDS ORDERED: LORazepam 2 MG/ML SDV VIAL IVPUSH ONE (20:32)
[2023-05-02] MEDS: QUEtiapine FUMARATE 200 MG TABLET PO SCH (22:33)
[2023-05-03] MEDS: AMINO ACIDS 4.25%/D5W 1,000 ML IV SCH ×3 (03:09→14:13)
[2023-05-03] MEDS: VALPROATE SODIUM INJECTION 250 MG in SODIUM CHLORIDE 100 ML IVPB SCH ×4 (04:50→21:43)
[2023-05-03] MEDS: cloNIDine HCL 0.1 MG TABLET PO SCH ×3 (06:50→21:43)
[2023-05-03 09:24] LABS: BASO % 0.4 % (0-2.0); EOS % 3.2 % (0-4.5); HEMATOCRIT 43.6 % (35.4-49); HEMOGLOBIN 14.1 GM/dL (11.7-16.9); LYMPH % 25.1 % (8-40); MCH 30.6 pg (25.7-33.7); MCHC 32.5 g/dl (32.0-35.9); MEAN CELL VOLUME 94.3 fl (80-96); MEAN PLT VOLUME 9.9 fl (7.5-11.1); MONO % 7.3 % (3.8-10.2); PLATELET COUNT 264 10^3/uL (134-434); RBC 4.62 M/mm3 (4.00-5.60); RDW 14.2 % (11.9-15.9); WHITE BLOOD COUNT 5.3 K/mm3 (4.0-10.0)
[2023-05-03] MEDS: ENOXAPARIN NA (PORCINE) 40 MG/0.4 ML DISP.SYRIN SQ SCH (09:52)
[2023-05-03 10:00] LABS: CALCIUM 9.2 mg/dL (8.5-10.1)
[2023-05-03 10:01] LABS: ALBUMIN 3.2 g/dl (3.4-5.0); BLOOD UREA NITROGEN 13.3 mg/dL (7-18); MAGNESIUM 1.7 mg/dL (1.8-2.4)
[2023-05-03] MEDS: POLYETHYLENE GLYCOL (HEALTHYLAX) 3350 17 GM PACKET PO SCH ×2 (10:03→21:50)
[2023-05-03 10:04] LABS: CREATININE 0.5 mg/dL (0.55-1.3)
[2023-05-03 10:05] LABS: BILIRUBIN,TOTAL 0.2 mg/dL (0.2-1); TOT PROT 7.1 g/dl (6.4-8.2)
[2023-05-03] MEDS: BENZTROPINE MESYLATE 0.5 MG TABLET (FP) PO SCH ×2 (11:11→21:44)
[2023-05-03] MEDS: chlorproMAZINE HCL 100 MG TABLET PO SCH ×2 (11:12→21:45)
[2023-05-03] MEDS: CHOLECALCIFEROL (VIT D3) 1,000 UNIT (25 MCG) TABLET PO SCH (11:13)
[2023-05-03] MEDS: LITHIUM CARBONATE 450 MG PO SCH ×2 (11:14→21:45)
[2023-05-03] MEDS: MULTIVIT INJ. ADULT COMBO WITH VIT K 1 COMBO 10 ML VIAL IV SCH ×2 (14:13→17:10)
[2023-05-03] MEDS: QUEtiapine FUMARATE 200 MG TABLET PO SCH (21:43)
[2023-05-03] MEDS ORDERED: FAT EMULSION/OLIVE/SOY (CLINOLIPID) 250 ML EMULSION IV SCH (22:00)
[2023-05-03] MEDS: FAT EMULSION/OLIVE/SOY/PHOSPHO 250 ML IV SCH (22:36)
[2023-05-04] MEDS: AMINO ACIDS 4.25%/D5W 1,000 ML IV SCH ×3 (03:00→18:17)
[2023-05-04] MEDS: VALPROATE SODIUM INJECTION 250 MG in SODIUM CHLORIDE 100 ML IVPB SCH ×2 (03:04→09:39)
[2023-05-04] MEDS: cloNIDine HCL 0.1 MG TABLET PO SCH ×3 (06:08→22:42)
[2023-05-04 09:28] LABS: BASO % 0.7 % (0-2.0); EOS % 1.8 % (0-4.5); HEMATOCRIT 41.9 % (35.4-49); HEMOGLOBIN 13.9 GM/dL (11.7-16.9); LYMPH % 20.3 % (8-40); MCH 31.3 pg (25.7-33.7); MCHC 33.2 g/dl (32.0-35.9); MEAN CELL VOLUME 94.3 fl (80-96); MEAN PLT VOLUME 10.7 fl (7.5-11.1); MONO % 6.3 % (3.8-10.2); NEUT % 70.9 % (42.8-82.8); PLATELET COUNT 263 10^3/uL (134-434); RBC 4.44 M/mm3 (4.00-5.60); RDW 13.5 % (11.9-15.9); WHITE BLOOD COUNT 7.5 K/mm3 (4.0-10.0)
[2023-05-04 09:45] LABS: POTASSIUM 4.1 mmol/L (3.5-5.1)
[2023-05-04] MEDS: BENZTROPINE MESYLATE 0.5 MG TABLET (FP) PO SCH ×2 (09:57→22:46)
[2023-05-04] MEDS: ENOXAPARIN NA (PORCINE) 40 MG/0.4 ML DISP.SYRIN SQ SCH (09:57)
[2023-05-04] MEDS: CHOLECALCIFEROL (VIT D3) 1,000 UNIT (25 MCG) TABLET PO SCH (09:57)
[2023-05-04] MEDS: POLYETHYLENE GLYCOL (HEALTHYLAX) 3350 17 GM PACKET PO SCH (09:57)
[2023-05-04] MEDS: LITHIUM CARBONATE 450 MG PO SCH ×2 (09:59→22:43)
[2023-05-04] MEDS: chlorproMAZINE HCL 100 MG TABLET PO SCH ×2 (09:59→22:46)
[2023-05-04 10:00] LABS: ALBUMIN 3.3 g/dl (3.4-5.0); BLOOD UREA NITROGEN 14.6 mg/dL (7-18); CALCIUM 9.1 mg/dL (8.5-10.1); MAGNESIUM 1.6 mg/dL (1.8-2.4)
[2023-05-04 10:03] LABS: CREATININE 0.5 mg/dL (0.55-1.3)
[2023-05-04 10:05] LABS: BILIRUBIN,TOTAL 0.3 mg/dL (0.2-1); TOT PROT 7.1 g/dl (6.4-8.2)
[2023-05-04] MEDS: MULTIVIT INJ. ADULT COMBO WITH VIT K 1 COMBO 10 ML VIAL IV SCH (18:18)
[2023-05-04] MEDS: DIVALPROEX SODIUM 500 MG TABLET E.C. PO SCH (22:42)
[2023-05-04] MEDS: FAT EMULSION/OLIVE/SOY/PHOSPHO 250 ML IV SCH (22:42)
[2023-05-04] MEDS: QUEtiapine FUMARATE 200 MG TABLET PO SCH (22:42)
[2023-05-05] MEDS: POLYETHYLENE GLYCOL (HEALTHYLAX) 3350 17 GM PACKET PO SCH ×3 (00:16→22:25)
[2023-05-05] MEDS: AMINO ACIDS 4.25%/D5W 1,000 ML IV SCH ×3 (02:16→18:42)
[2023-05-05] MEDS: cloNIDine HCL 0.1 MG TABLET PO SCH ×4 (06:23→22:27)
[2023-05-05 07:50] LABS: BASO % 0.7 % (0-2.0); EOS % 3.2 % (0-4.5); HEMATOCRIT 38.9 % (35.4-49); HEMOGLOBIN 13.3 GM/dL (11.7-16.9); LYMPH % 25.4 % (8-40); MCH 31.5 pg (25.7-33.7); MCHC 34.3 g/dl (32.0-35.9); MEAN CELL VOLUME 91.8 fl (80-96); MEAN PLT VOLUME 9.5 fl (7.5-11.1); MONO % 7.6 % (3.8-10.2); NEUT % 63.1 % (42.8-82.8); PLATELET COUNT 280 10^3/uL (134-434); RBC 4.23 M/mm3 (4.00-5.60); RDW 14.1 % (11.9-15.9); WHITE BLOOD COUNT 7.2 K/mm3 (4.0-10.0)
[2023-05-05 08:11] LABS: POTASSIUM 3.6 mmol/L (3.5-5.1)
[2023-05-05 08:15] LABS: CALCIUM 8.8 mg/dL (8.5-10.1)
[2023-05-05 08:16] LABS: BLOOD UREA NITROGEN 17.5 mg/dL (7-18); MAGNESIUM 1.6 mg/dL (1.8-2.4)
[2023-05-05 08:18] LABS: ALBUMIN 3.1 g/dl (3.4-5.0)
[2023-05-05 08:19] LABS: CREATININE 0.5 mg/dL (0.55-1.3)
[2023-05-05 08:20] LABS: BILIRUBIN,TOTAL 0.2 mg/dL (0.2-1); TOT PROT 6.5 g/dl (6.4-8.2)
[2023-05-05] MEDS: CHOLECALCIFEROL (VIT D3) 1,000 UNIT (25 MCG) TABLET PO SCH (10:45)
[2023-05-05] MEDS: DIVALPROEX SODIUM 500 MG TABLET E.C. PO SCH ×2 (10:45→22:26)
[2023-05-05] MEDS: LITHIUM CARBONATE 450 MG PO SCH ×2 (10:46→22:25)
[2023-05-05] MEDS: BENZTROPINE MESYLATE 0.5 MG TABLET (FP) PO SCH ×2 (10:46→22:26)
[2023-05-05] MEDS: ENOXAPARIN NA (PORCINE) 40 MG/0.4 ML DISP.SYRIN SQ SCH (10:46)
[2023-05-05] MEDS: chlorproMAZINE HCL 100 MG TABLET PO SCH ×2 (10:48→22:25)
[2023-05-05] MEDS: MULTIVIT INJ. ADULT COMBO WITH VIT K 1 COMBO 10 ML VIAL IV SCH (18:43)
[2023-05-05] MEDS: FAT EMULSION/OLIVE/SOY/PHOSPHO 250 ML IV SCH (22:27)
[2023-05-05] MEDS: QUEtiapine FUMARATE 200 MG TABLET PO SCH (22:27)
[2023-05-06] MEDS: AMINO ACIDS 4.25%/D5W 1,000 ML IV SCH (03:01)
[2023-05-06] MEDS: cloNIDine HCL 0.1 MG TABLET PO SCH ×3 (06:29→21:52)
[2023-05-06 08:52] LABS: BASO % 0.6 % (0-2.0); EOS % 1.6 % (0-4.5); HEMATOCRIT 39.6 % (35.4-49); HEMOGLOBIN 13.3 GM/dL (11.7-16.9); LYMPH % 17.5 % (8-40); MCH 30.9 pg (25.7-33.7); MCHC 33.6 g/dl (32.0-35.9); MEAN CELL VOLUME 91.9 fl (80-96); MEAN PLT VOLUME 9.5 fl (7.5-11.1); MONO % 6.3 % (3.8-10.2); PLATELET COUNT 260 10^3/uL (134-434); RBC 4.31 M/mm3 (4.00-5.60); RDW 13.9 % (11.9-15.9); WHITE BLOOD COUNT 8.4 K/mm3 (4.0-10.0)
[2023-05-06 09:06] LABS: BLOOD UREA NITROGEN 11.5 mg/dL (7-18)
[2023-05-06 09:08] LABS: ALBUMIN 3.2 g/dl (3.4-5.0); CALCIUM 9.3 mg/dL (8.5-10.1); MAGNESIUM 1.5 mg/dL (1.8-2.4)
[2023-05-06 09:09] LABS: CREATININE 0.5 mg/dL (0.55-1.3)
[2023-05-06 09:13] LABS: BILIRUBIN,TOTAL 0.3 mg/dL (0.2-1)
[2023-05-06] MEDS: ENOXAPARIN NA (PORCINE) 40 MG/0.4 ML DISP.SYRIN SQ SCH (10:00)
[2023-05-06] MEDS ORDERED: VALPROATE SODIUM 250 MG/5 ML UNIT DOSE CUP PO SCH (10:00)
[2023-05-06] MEDS: POLYETHYLENE GLYCOL (HEALTHYLAX) 3350 17 GM PACKET PO SCH ×2 (10:02→21:54)
[2023-05-06] MEDS: BENZTROPINE MESYLATE 0.5 MG TABLET (FP) PO SCH ×2 (10:03→21:52)
[2023-05-06] MEDS: chlorproMAZINE HCL 100 MG TABLET PO SCH ×2 (10:04→21:53)
[2023-05-06] MEDS: LITHIUM CARBONATE 450 MG PO SCH ×2 (10:06→21:53)
[2023-05-06] MEDS: CHOLECALCIFEROL (VIT D3) 1,000 UNIT (25 MCG) TABLET PO SCH (10:10)
[2023-05-06] MEDS: DIVALPROEX SODIUM 500 MG TABLET E.C. PO SCH (11:50)
[2023-05-06] MEDS: VALPROATE SODIUM 250 MG/5 ML UNIT DOSE CUP PO SCH ×2 (13:00→17:29)
[2023-05-06] MEDS: MULTIVIT-MINERALS ORAL LIQUID PO SCH (14:45)
[2023-05-06] MEDS: QUEtiapine FUMARATE 200 MG TABLET PO SCH (21:52)
[2023-05-07] MEDS: VALPROATE SODIUM 250 MG/5 ML UNIT DOSE CUP PO SCH ×5 (00:30→23:25)
[2023-05-07] MEDS: cloNIDine HCL 0.1 MG TABLET PO SCH ×3 (06:21→21:47)
[2023-05-07 08:39] LABS: BASO % 0.9 % (0-2.0); HEMOGLOBIN 13.1 GM/dL (11.7-16.9); LYMPH % 24.1 % (8-40); MCH 30.7 pg (25.7-33.7); MCHC 32.8 g/dl (32.0-35.9); MEAN CELL VOLUME 93.8 fl (80-96); MEAN PLT VOLUME 10.1 fl (7.5-11.1); PLATELET COUNT 279 10^3/uL (134-434); RBC 4.26 M/mm3 (4.00-5.60); WHITE BLOOD COUNT 5.5 K/mm3 (4.0-10.0)
[2023-05-07 09:01] LABS: POTASSIUM 4.5 mmol/L (3.5-5.1)
[2023-05-07 09:06] LABS: CALCIUM 9.8 mg/dL (8.5-10.1)
[2023-05-07 09:07] LABS: ALBUMIN 3.4 g/dl (3.4-5.0); BLOOD UREA NITROGEN 14.5 mg/dL (7-18); MAGNESIUM 1.8 mg/dL (1.8-2.4)
[2023-05-07 09:09] LABS: CREATININE 0.4 mg/dL (0.55-1.3)
[2023-05-07 09:10] LABS: BILIRUBIN,TOTAL 0.4 mg/dL (0.2-1); TOT PROT 7.3 g/dl (6.4-8.2)
[2023-05-07] MEDS: LITHIUM CARBONATE 450 MG PO SCH ×2 (10:42→21:47)
[2023-05-07] MEDS: MULTIVIT-MINERALS ORAL LIQUID PO SCH (10:43)
[2023-05-07] MEDS: chlorproMAZINE HCL 100 MG TABLET PO SCH ×2 (10:43→21:46)
[2023-05-07] MEDS: BENZTROPINE MESYLATE 0.5 MG TABLET (FP) PO SCH ×2 (10:43→21:48)
[2023-05-07] MEDS: POLYETHYLENE GLYCOL (HEALTHYLAX) 3350 17 GM PACKET PO SCH ×2 (10:44→21:46)
[2023-05-07] MEDS: ENOXAPARIN NA (PORCINE) 40 MG/0.4 ML DISP.SYRIN SQ SCH (10:49)
[2023-05-07] MEDS: CHOLECALCIFEROL (VIT D3) 1,000 UNIT (25 MCG) TABLET PO SCH (10:49)
[2023-05-07] MEDS: QUEtiapine FUMARATE 200 MG TABLET PO SCH (21:48)
[2023-05-08] MEDS: VALPROATE SODIUM 250 MG/5 ML UNIT DOSE CUP PO SCH ×4 (06:31→22:52)
[2023-05-08] MEDS: cloNIDine HCL 0.1 MG TABLET PO SCH ×3 (06:31→22:53)
[2023-05-08 09:48] LABS: BASO % 1.2 % (0-2.0); EOS % 0.8 % (0-4.5); HEMATOCRIT 42.8 % (35.4-49); HEMOGLOBIN 13.9 GM/dL (11.7-16.9); LYMPH % 27.1 % (8-40); MCH 30.7 pg (25.7-33.7); MCHC 32.6 g/dl (32.0-35.9); MEAN CELL VOLUME 94.2 fl (80-96); MEAN PLT VOLUME 10.4 fl (7.5-11.1); MONO % 5.8 % (3.8-10.2); NEUT % 65.1 % (42.8-82.8); PLATELET COUNT 297 10^3/uL (134-434); RBC 4.54 M/mm3 (4.00-5.60); RDW 14.1 % (11.9-15.9); WHITE BLOOD COUNT 5.2 K/mm3 (4.0-10.0)
[2023-05-08 10:03] LABS: POTASSIUM 4.4 mmol/L (3.5-5.1)
[2023-05-08 10:08] LABS: BLOOD UREA NITROGEN 16.9 mg/dL (7-18)
[2023-05-08 10:09] LABS: ALBUMIN 3.9 g/dl (3.4-5.0); CALCIUM 10.1 mg/dL (8.5-10.1)
[2023-05-08 10:10] LABS: MAGNESIUM 1.9 mg/dL (1.8-2.4)
[2023-05-08 10:11] LABS: CREATININE 0.6 mg/dL (0.55-1.3)
[2023-05-08 10:13] LABS: BILIRUBIN,TOTAL 0.5 mg/dL (0.2-1); TOT PROT 8.4 g/dl (6.4-8.2)
[2023-05-08] MEDS: MULTIVIT-MINERALS ORAL LIQUID PO SCH (10:42)
[2023-05-08] MEDS: CHOLECALCIFEROL (VIT D3) 1,000 UNIT (25 MCG) TABLET PO SCH (10:42)
[2023-05-08] MEDS: ENOXAPARIN NA (PORCINE) 40 MG/0.4 ML DISP.SYRIN SQ SCH (10:42)
[2023-05-08] MEDS: BENZTROPINE MESYLATE 0.5 MG TABLET (FP) PO SCH ×2 (10:42→22:56)
[2023-05-08] MEDS: LITHIUM CARBONATE 450 MG PO SCH ×2 (10:43→22:56)
[2023-05-08] MEDS: chlorproMAZINE HCL 100 MG TABLET PO SCH ×2 (10:44→22:55)
[2023-05-08] MEDS: POLYETHYLENE GLYCOL (HEALTHYLAX) 3350 17 GM PACKET PO SCH ×2 (11:16→22:52)
[2023-05-08 21:08] VITALS: RESP 18
[2023-05-08] MEDS: QUEtiapine FUMARATE 200 MG TABLET PO SCH (22:53)
[2023-05-09] MEDS: VALPROATE SODIUM 250 MG/5 ML UNIT DOSE CUP PO SCH ×2 (06:22→14:39)
[2023-05-09] MEDS: cloNIDine HCL 0.1 MG TABLET PO SCH ×2 (06:22→13:51)
[2023-05-09] MEDS: LITHIUM CARBONATE 450 MG PO SCH (10:31)
[2023-05-09] MEDS: POLYETHYLENE GLYCOL (HEALTHYLAX) 3350 17 GM PACKET PO SCH (10:32)
[2023-05-09] MEDS: MULTIVIT-MINERALS ORAL LIQUID PO SCH (10:32)
[2023-05-09] MEDS: CHOLECALCIFEROL (VIT D3) 1,000 UNIT (25 MCG) TABLET PO SCH (10:32)
[2023-05-09] MEDS: chlorproMAZINE HCL 100 MG TABLET PO SCH (10:32)
[2023-05-09] MEDS: ENOXAPARIN NA (PORCINE) 40 MG/0.4 ML DISP.SYRIN SQ SCH (10:32)
[2023-05-09] MEDS: BENZTROPINE MESYLATE 0.5 MG TABLET (FP) PO SCH (10:33)
[2023-05-09 14:30] VITALS: BP 112/81; PULSE 102; TEMP 97.6
== END 2023-05-09 19:05 | disposition home or self-care (01) | DRG 178 ==
LOC: JER 14:02 → UNDOADMIN 19:29 → JERBED 19:29 → J8W 04-26 08:14
PROVIDERS: ADMIT Internal Medicine; ATTEND Student in an Organized Health Care Education/Training Program
DX: J69.0 Pneumonitis due to inhalation of food and vomit (principal); A04.72 Enterocolitis due to Clostridium difficile, not specified as recurrent; E46 Unspecified protein-calorie malnutrition; F84.0 Autistic disorder; G40.909 Epilepsy, unspecified, not intractable, without status epilepticus; R05.3 Chronic cough; Z68.22 Body mass index [BMI] 22.0-22.9, adult; I34.0 Nonrheumatic mitral (valve) insufficiency; F98.8 Other specified behavioral and emotional disorders with onset usually occurring in childhood and adolescence; T18.4XXA Foreign body in colon, initial encounter; K59.00 Constipation, unspecified; J98.4 Other disorders of lung; R63.0 Anorexia
CPT/HCPCS: 0241U-QW; 36415; 36600; 70450-TC; 71045-TC-FY; 71260-TC; 74018-TC-FY; 74019-TC-FY; 74177-TC; 74230-TC-FY; 80053; 80164; 80178; 81003; 82550; 82553; 82803; 82962; 83605; 83735; 84478; 84484; 85025; 85027; 85610; 85730; 86850; 86900; 86901; 87040; 87086; 87899; 92611-GN; 93005; 93010; 94761; 97116-GP; 97162-GP; 99285-25; Q9967

== ENCOUNTER 2024-10-25 16:21 | Emergency (ER) | payer OTHER ==
[2024-10-25 16:31] VITALS: BP 120/79; RESP 20; BMI 20.7
[2024-10-25] MEDS ORDERED: ONDANSETRON *ODT* 4 MG TABLET ONE (17:35)
[2024-10-25] MEDS ORDERED: ACETAMINOPHEN 160 MG/5 ML 473ML BULK BOTTLE ONE (17:52)
[2024-10-25] MEDS ORDERED: ONDANSETRON HCL 4 MG/5 ML UD CUPS ONE (17:55)
[2024-10-25] MEDS: ACETAMINOPHEN 160 MG/5 ML *Children Solution PO ONE (18:20)
[2024-10-25] MEDS: ONDANSETRON HCL 4 MG/5 ML BULK BOTTLE PO ONE (18:20)
[2024-10-25] MEDS: ACETAMINOPHEN 325 MG TABLET (FP) PO ONE (18:20)
[2024-10-25] MEDS: ONDANSETRON *ODT* 4 MG TABLET SL ONE (18:21)
[2024-10-25] MEDS: IBUPROFEN 400 MG TABLET (FP) PO ONE (18:21)
[2024-10-25] MEDS ORDERED: KETOROLAC TROMETHAMINE 30 MG/1 ML VIAL ONE (19:10)
[2024-10-25] MEDS: KETOROLAC TROMETHAMINE 30 MG/1 ML VIAL IM ONE (19:17)
[2024-10-25 20:34] VITALS: PULSE 75; TEMP 99
== END 2024-10-25 20:48 | disposition home or self-care (01) ==
LOC: JER 16:21
PROC: 3E0133Z Introduction of Anti-inflammatory into Subcutaneous Tissue, Percutaneous Approach (ICD-10-PCS; principal; 2024-10-25)
DX: J10.1 Influenza due to other identified influenza virus with other respiratory manifestations (principal); R50.9 Fever, unspecified; R05.9 Cough, unspecified; R63.0 Anorexia; Z20.822 Contact with and (suspected) exposure to COVID-19
CPT/HCPCS: 0241U-QW; 93005; 93010; 99284-25